=== PATIENT | male | born 1965 | race Caucasian/White ===

== ENCOUNTER 2016-08-14 18:48 | Emergency (ER) | payer BC, OTHER ==
[~2016-08-14] VITALS: Ht 180.3 cm; Wt 92.1 kg
[~2016-08-14 18:48] MED LIST: ASPIRIN EC325 MG PO; ATARAX,VISTARIL25 MG PO; BUPROPION XL150 MG PO; DESYREL100 MG PO; DISULFIRAM250 MG PO; FISH OIL 1,0001 EA10 PO; GARLIC1000 MG PO; HYDROXYZINE HCL50 MG PO; HYDROXYZINE PAM25 MG PO; LITHIUM CARBON450 MG PO; PRAZOSIN HCL1 MG PO; SUPER B COMPLE1 EAC1 PO; TRAZODONE HCL150 MG PO; VITAMIN D32000 UNIT PO; VITAMIN E400 UNIT PO; XANAX0.5 MG PO; XANAX1 MG PO; ZINC50 M1 PO
[2016-08-14 19:01] VITALS: BP 132/87
[2016-08-14] MEDS ORDERED: MOTRIN800 MG PO (19:29)
[2016-08-14] MEDS ORDERED: NORCO 7.5/321 TABLET PO (19:29)
== END 2016-08-14 19:55 | disposition home or self-care (01) ==
LOC: EME 18:48
DX: M23.92 Unspecified internal derangement of left knee (principal); S83.422A Sprain of lateral collateral ligament of left knee, initial encounter; S83.512A Sprain of anterior cruciate ligament of left knee, initial encounter; X50.9XXA Other and unspecified overexertion or strenuous movements or postures, initial encounter
CPT/HCPCS: 99281; 99284